=== PATIENT | male | born 1960 | race African-American/Black ===

== ENCOUNTER 2024-01-19 10:39 | Day surgery (SDC) | payer OTHER, SELFPAY ==
[2024-01-18 06:44] VITALS: BMI 29.4
[2024-01-19 11:35] VITALS: BMI 31.3
[2024-01-19 11:56] VITALS: BP 135/93; PULSE 68; RESP 16; TEMP 36.5; O2SAT 96
[2024-01-19] MEDS: Lactated Ringers 1,000 ML 100 ML IVCONT (11:56)
[2024-01-19 12:09] LABS: Glucose, Whole Blood 92 mg/dL (60-115)
--- NOTE | 2024-01-19 12:11 | HO.ANESPROP2 ---
[facility] Past Medical History Medical History Vitamin D deficiency Allergic rhinitis HTN (hypertension) Diabetes Sleep apnea Surgical History Surgical History H/O colonoscopy History of Problems with Anesthesia: No Social History Social History Patient Tobacco Use Status: Never used Tobacco Use of substances other than those prescribed or required for medical reasons: Yes Substance Use Frequency: Occasionally Are you DNR?: No Advance Directives: No Advance Directives Information Provided: Yes Meds Allergies Allergy/AdvReac Type Severity Reaction Status Date / Time No Known Allergies Allergy Verified 01/19/24 06:32 Active Medications: Current Medications Lactated Ringer's (Lr) 1,000 mls @ 100 mls/hr IVCONT .Q10H DANA Last Admin: 01/19/24 11:56 Dose: 100 mls/hr Sodium Biphosphate/Sodium Phosphate (Sodium Phosphate,Republic-Dibasic 133 Ml Enema) 133 ml UT ONCE PRN PRN Reason: Poor Colonoscopy Prep Results Home Medications ?Medication ?Instructions ?Recorded ?Confirmed ?Last Taken ?Type amlodipine 10 mg tablet 10 mg PO DAILY 01/18/24 01/18/24 Unknown History atorvastatin 80 mg tablet 80 mg PO DAILY 01/18/24 01/18/24 Unknown History hydrochlorothiazide 25 mg tablet 25 mg PO DAILY 01/18/24 01/18/24 Unknown History lisinopril 2.5 mg tablet 2.5 mg PO DAILY 01/18/24 01/19/24 01/19/24 08:30 History metformin 500 mg tablet 500 mg PO DAILY 01/18/24 01/18/24 Unknown History Exam Height,Weight and Vital Signs: Height 5 ft 7 in Weight 90.718 kg Last Vital Signs Temp 97.7 F 01/19/24 11:56 Pulse 68 01/19/24 11:56 Resp 16 01/19/24 11:56 BP 135/93 H 01/19/24 11:56 Pulse Ox 96 01/19/24 11:56 O2 Del Method Room Air 01/19/24 11:56 Pertinent Lab Results Pertinent Lab Results: Laboratory Tests 01/19/24 12:01 POC Glucose 92 Airway Mallampati Class: III TM Dist: >3cm Neck ROM: Full Loose/Missing/Broken Teeth: No Heart: RRR Lungs: CTA Assessment and Plan Assessment Anesthesia Assessment: Anesthesia Plan Discussed Final Anesthetic Review History of Problems with Anesthesia: No NPO: Yes ASA Class: III Final Preanesthetic Review: Meds/Allgs Chart Reviewed, Consent Obtained/Reviewed and Anes Risks/Benef Reviewed Patient Risk: Intermediate Procedure Risk: Low Anesthetic Plan Anesthetic Plan: MAC: Disposition: Standard PACU
[2024-01-19 13:18] VITALS: BP 106/64; PULSE 67; RESP 16; TEMP 36.3; O2SAT 97
--- NOTE | 2024-01-19 13:20 | PM.OP ---
Brief Operative Note Date of Service: 01/19/24 Pre-op diagnosis: Screening Post-op diagnosis: other (Diverticulosis) Procedure: Colonoscopy to the cecum and TI Surgeon: Elijah Virk MD Anesthesia: MAC Was an Analysis Specialist used for this Procedure?: No Estimated blood loss (mL): 0 Pathology: none sent Condition: stable Disposition: PACU
--- NOTE | 2024-01-19 14:24 | OP_ITS ---
DATE OF SERVICE: 01/19/2024 SURGEON: Elijah Virk MD INDICATIONS: The patient presents for evaluation of colorectal cancer screening. Full consent has been obtained from him for this, including risks of bleeding and perforation. PREOPERATIVE DIAGNOSIS: Colorectal cancer screening. POSTOPERATIVE DIAGNOSIS: PROCEDURE PERFORMED: Colonoscopy to the cecum and terminal ileum. ESTIMATED BLOOD LOSS: COMPLICATIONS: ANESTHESIA: Monitored anesthesia care. ASSISTANTS: SPECIMENS: POSTOPERATIVE DIAGNOSES: Colorectal cancer screening, diverticulosis, and internal hemorrhoids. DESCRIPTION OF PROCEDURE: The patient was placed in the left lateral decubitus position. The digital rectal exam revealed no abnormalities. The Olympus video pediatric colonoscope was entered into the rectum and advanced easily to the cecum. Once in the cecum, I did visualize normal-appearing cecal pouch with appendiceal orifice and a normal-appearing ileocecal valve. The terminal ileum was cannulated and appeared normal. The scope was withdrawn back in the colon. The entire cecum and ileocecal valve appeared normal. The scope was slowly withdrawn assessing all mucosal surfaces carefully. For the most part, preparation was very good throughout the colon, but there were some areas that were obscured by some residual debris, which was irrigated and moved away as best as possible but not completely. I did not visualize any sign of polyps, colitis, nor angiodysplasia. There were occasional diverticula in the sigmoid colon. In the rectum, scope was retroflexed visualizing internal hemorrhoids, but no other pathology. The rectal mucosa appeared normal. The scope was straightened and withdrawn from the patient. He tolerated the procedure well and was returned to the recovery area in stable condition. IMPRESSION: 1. Diverticulosis. 2. Internal hemorrhoids. PLAN: Given the negative exam but some areas of somewhat limited prep, I would recommend a followup colonoscopy in 5 to 7 years. He will otherwise see me on a p.r.n. basis. MD BURAK Lea/MOOSE / [phone]
== END 2024-01-19 13:58 | disposition home or self-care (01) ==
PROVIDERS: Visit Provider Internal Medicine
PROC: 0DJD8ZZ Inspection of Lower Intestinal Tract, Via Natural or Artificial Opening Endoscopic (ICD-10-PCS; CPT 45378; principal; 2024-01-19 12:40)
DX: Z12.11 Encounter for screening for malignant neoplasm of colon (principal); K57.30 Diverticulosis of large intestine without perforation or abscess without bleeding; K64.8 Other hemorrhoids; I10 Essential (primary) hypertension; E11.9 Type 2 diabetes mellitus without complications; G47.33 Obstructive sleep apnea (adult) (pediatric); J30.9 Allergic rhinitis, unspecified; E55.9 Vitamin D deficiency, unspecified; Z79.84 Long term (current) use of oral hypoglycemic drugs; Z79.899 Other long term (current) drug therapy
CPT/HCPCS: 45378; 82947; J2704